=== PATIENT | female | born 1960 ===

== ENCOUNTER 2017-09-26 09:33 | Outpatient (CLI) | payer OTHER | END 2017-09-26 10:00 | disposition home or self-care (01) | LOC: LAB 09:33 | DX: E03.9 Hypothyroidism, unspecified (principal); R78.2 Finding of cocaine in blood ==

== ENCOUNTER 2017-09-26 10:28 | Outpatient (CLI) | payer OTHER | END 2017-09-26 10:46 | disposition home or self-care (01) | LOC: SONOGRAMA 10:28 | DX: E03.9 Hypothyroidism, unspecified (principal) ==

== ENCOUNTER 2017-10-10 09:55 | Outpatient (CLI) | payer OTHER | END 2017-10-10 10:15 | disposition home or self-care (01) | LOC: LAB 09:55 | DX: E03.8 Other specified hypothyroidism (principal); E21.3 Hyperparathyroidism, unspecified ==

== ENCOUNTER 2017-11-03 06:53 | Outpatient (CLI) | payer OTHER | END 2017-11-03 06:57 | disposition home or self-care (01) | LOC: SONOGRAMA 06:53 | DX: E04.2 Nontoxic multinodular goiter (principal) ==

== ENCOUNTER 2021-02-05 09:24 | Outpatient (CLI) | payer OTHER | END 2021-02-05 09:27 | disposition home or self-care (01) | LOC: SONOGRAMA 09:24 | PROVIDERS: ATTEND Pathology Anatomic Pathology & Clinical Pathology | DX: E04.1 Nontoxic single thyroid nodule (principal) ==

== ENCOUNTER 2021-07-27 12:24 | Emergency (ER) | payer OTHER ==
[~2021-07-27] VITALS: Ht 167.6 cm; Wt 106.6 kg
[2021-07-27] MEDS ORDERED: LITHOBID300 M1 (12:59)
[2021-07-27] MEDS ORDERED: ATARAX25 MG PO (12:59)
[2021-07-27] MEDS ORDERED: LEVOTHYROXINE100 MC1 PO (12:59)
[2021-07-27] MEDS ORDERED: QUETIAPINE FUM400 M1 PO (12:59)
[2021-07-27] MEDS ORDERED: DUI500 PO (16:20)
[2021-07-27] MEDS ORDERED: ZYRTEC10 M3 PO (16:20)
== END 2021-07-27 16:27 | disposition home or self-care (01) ==
LOC: ER 12:24
DX: T78.40XA Allergy, unspecified, initial encounter (principal); E03.9 Hypothyroidism, unspecified

== ENCOUNTER 2021-10-19 10:08 | Outpatient (CLI) | payer OTHER ==
[~2021-10-19 10:08] MED LIST: ATARAX25 MG PO; DUI500 PO; LEVOTHYROXINE100 MC1 PO; LITHOBID300 M1; QUETIAPINE FUM400 M1 PO; ZYRTEC10 M3 PO
== END 2021-10-19 14:34 | disposition home or self-care (01) ==
LOC: TOM 10:08
PROVIDERS: ATTEND Internal Medicine Gastroenterology
DX: K59.00 Constipation, unspecified (principal); K56.600 Partial intestinal obstruction, unspecified as to cause; K92.1 Melena; D12.2 Benign neoplasm of ascending colon

== ENCOUNTER 2022-03-09 14:57 | Emergency (ER) | payer OTHER ==
[~2022-03-09] VITALS: Ht 167.6 cm; Wt 104.3 kg
== END 2022-03-09 21:22 | disposition home or self-care (01) ==
LOC: ER 14:57
DX: R11.10 Vomiting, unspecified (principal); R11.0 Nausea; E87.6 Hypokalemia

== ENCOUNTER 2022-03-12 14:53 | Inpatient (IN) | payer OTHER ==
[~2022-03-12] VITALS: Ht 167.6 cm; Wt 107.0 kg
== END 2022-03-28 14:15 | disposition home or self-care (01) | DRG 445 ==
LOC: ER 14:53 → SURH 23:33
PROVIDERS: ADMIT Internal Medicine; ATTEND Internal Medicine
PROC: 02HV33Z Insertion of Infusion Device into Superior Vena Cava, Percutaneous Approach (ICD-10-PCS; principal; 2022-03-14)
PROC: BF37ZZZ Magnetic Resonance Imaging (MRI) of Pancreas (ICD-10-PCS; 2022-03-15)
DX: K80.18 Calculus of gallbladder with other cholecystitis without obstruction (principal); E87.0 Hyperosmolality and hypernatremia; K90.49 Malabsorption due to intolerance, not elsewhere classified; E87.6 Hypokalemia; E86.0 Dehydration; K29.60 Other gastritis without bleeding; Z20.822 Contact with and (suspected) exposure to COVID-19

== ENCOUNTER 2022-06-21 11:54 | Outpatient (CLI) | payer OTHER | END 2022-06-21 11:57 | disposition home or self-care (01) | LOC: LAB 11:54 | PROVIDERS: ATTEND Specialist | DX: D68.8 Other specified coagulation defects (principal) ==

== ENCOUNTER 2022-06-22 06:10 | Outpatient (CLI) | payer OTHER | END 2022-06-22 06:12 | disposition home or self-care (01) | LOC: LAB 06:10 | PROVIDERS: ATTEND Specialist | DX: D68.62 Lupus anticoagulant syndrome (principal); Z15.89 Genetic susceptibility to other disease; R79.83 Abnormal findings of blood amino-acid level; D68.61 Antiphospholipid syndrome; D68.59 Other primary thrombophilia ==

== ENCOUNTER 2023-05-09 10:29 | Outpatient (CLI) | payer OTHER ==
[2023-05-09 10:59] LABS: HEMATOCRIT 36.1 % (36.0-45.00); HEMOGLOBIN 12.6 g/dL (12.0-15.00); MEAN CORPUSCULAR HEMOGLOBIN 31.2 pg (27.00-32.0); RED BLOOD COUNT 4.05 M/uL (4.00-6.00); RED CELL DISTRIBUTION WIDTH 14.7 % (11.5-14.5)
[2023-05-09 11:01] LABS: PLATELET COUNT 113 K/uL (150-450)
[2023-05-09 11:38] LABS: INR 1.24; PARTIAL THROMBOPLASTIN TIME 30.4 SECONDS (22.0-34.0); PROTHROMBIN TIME 12.8 SECONDS (9.0-11.5)
[2023-05-09 12:03] LABS: ALBUMIN 3.7 gm/dL (3.4-5.0); BILIRUBIN TOTAL 2.51 mg/dL (0.3-1.2); CALCIUM 9.1 mg/dL (8.5-10.1); CREATININE SERUM 0.84 mg/dL (0.55-1.02); GFR 68.7; GLOBULINA 3.1 G/DL (2.4-3.5); POTASSIUM 3.73 mEq/L (3.5-5.1); TOTAL PROTEIN 6.8 gm/dL (6.4-8.2); TSH 2.1 uIU/mL (0.358-3.74)
== END 2023-05-09 10:54 | disposition home or self-care (01) ==
LOC: LAB 10:29
PROVIDERS: ATTEND Surgery
DX: Z01.810 Encounter for preprocedural cardiovascular examination (principal); I10 Essential (primary) hypertension; R10.9 Unspecified abdominal pain; R94.31 Abnormal electrocardiogram [ECG] [EKG]; J45.998 Other asthma; E03.9 Hypothyroidism, unspecified; E11.65 Type 2 diabetes mellitus with hyperglycemia; D68.8 Other specified coagulation defects

== ENCOUNTER 2023-05-09 10:56 | Outpatient (CLI) | payer OTHER | END 2023-05-09 11:04 | disposition home or self-care (01) | LOC: RAD 10:56 | PROVIDERS: ATTEND Surgery | DX: I10 Essential (primary) hypertension (principal) ==

== ENCOUNTER → 2023-05-19 | Day surgery (SDC) | payer OTHER ==
[~2023-05-19] MED LIST changes: +MIRALAX17 GM PO; +NEURONTIN300 MG PO; +TRAMADOL HCL50 MG PO; +TYLENOL ARTHRI650 MG PO
== END | disposition home or self-care (01) ==
LOC: ADM 05-12 09:15 → CIR.AMB 05:07
PROVIDERS: ATTEND Surgery
DX: K80.10 Calculus of gallbladder with chronic cholecystitis without obstruction (principal); Z20.822 Contact with and (suspected) exposure to COVID-19

== ENCOUNTER 2023-10-31 08:14 | Outpatient (CLI) | payer OTHER | END 2023-10-31 08:32 | disposition home or self-care (01) | LOC: MRI 08:14 | PROVIDERS: ATTEND Internal Medicine Gastroenterology | DX: K80.20 Calculus of gallbladder without cholecystitis without obstruction (principal); R17 Unspecified jaundice; R10.9 Unspecified abdominal pain; E80.6 Other disorders of bilirubin metabolism | CPT/HCPCS: 74183 ==

== ENCOUNTER 2024-01-24 10:59 | Outpatient (CLI) | payer OTHER | END 2024-01-24 11:21 | disposition home or self-care (01) | LOC: MAMO-SONO 10:59 | DX: N64.4 Mastodynia (principal); D68.59 Other primary thrombophilia; D68.61 Antiphospholipid syndrome; E72.11 Homocystinuria; E72.12 Methylenetetrahydrofolate reductase deficiency; F31.11 Bipolar disorder, current episode manic without psychotic features, mild; N63 Unspecified lump in breast; E03.9 Hypothyroidism, unspecified ==

== ENCOUNTER 2024-05-24 11:06 | Outpatient (CLI) | payer OTHER | END 2024-05-24 11:09 | disposition home or self-care (01) | LOC: SONOGRAMA 11:06 | PROVIDERS: ATTEND Pathology Anatomic Pathology & Clinical Pathology | DX: D34 Benign neoplasm of thyroid gland (principal); E06.3 Autoimmune thyroiditis; E03.8 Other specified hypothyroidism ==

== ENCOUNTER 2025-01-22 10:57 | Emergency (ER) | payer OTHER ==
[~2025-01-22] VITALS: Ht 167.6 cm; Wt 108.4 kg
[2025-01-22 11:13] VITALS: BP 119/77; O2SAT 96
[2025-01-22] MEDS ORDERED: ONDANSETRON 4 MG TAB.RAPDIS PO ONE (14:45)
[2025-01-22 15:33] LABS: BASO % 0.8 % (0.1-1.2); EOS # 0.49 (0.04-0.54); EOS % 5.4 % (0.7-7.0); LYMPH # 1.53 (1.18-3.74); LYMPH % 16.8 % (19.3-53.1); MEAN PLATELET VOLUME 9.60 fl (9.4-12.4); MONO # 0.65 (0.24-0.82); MONO % 7.1 % (4.7-12.5); NEUT # 6.33 (1.56-6.13); NEUT % 69.6 % (34.0-71.1); RED CELL DISTRIBUTION WIDTH 14.0 % (11.6-14.4)
[2025-01-22 16:14] LABS: ALT/SGPT 49.0 U/L (12-78); AST/SGOT 73.0 U/L (15-37); BILIRUBIN TOTAL 5.2 mg/dL (0.3-1.2); BUN CREA RATIO 7.0 (7.0-25.0); CREATININE SERUM 0.86 mg/dL (0.55-1.02); GFR 66.64; GLOBULINA 3.2 G/DL (2.4-3.5); GLUCOSE FASTING 101.0 mg/dL (65-100); OSMOLALITY SERUM 285.0 MOSM/KG (275-295); TSH 2.47 uIU/mL (0.358-3.74)
[2025-01-22 16:44] LABS: URINE APPEARANCE Clear; URINE BILIRRUBIN Small (NEGATIVE); URINE BLOOD Negative; URINE COLOR Dark Yellow; URINE GLUCOSE Negative (NEGATIVE); URINE KETONE Trace (NEGATIVE); URINE LEUKOCYTE Trace; URINE NITRATE Negative; URINE PROTEIN Trace (NEGATIVE); URINE UROBILINOGEN 1.0 E.U./dl
[2025-01-22 16:56] LABS: URINE BACTERIA 2619.5 uL (0.0-1933); URINE EPITHELIAL CELLS 88.8 uL (0.0-38.8); URINE RBC 7.3 uL (0.0-20.8); URINE WBC 15.3 uL (0.0-23.2)
[2025-01-22 17:16] LABS: URINE CAST 0.00 uL (0.0-1.40)
[2025-01-22 17:17] LABS: TYPE CELLS SQUAMOUS; URINE CRYSTALS FEW /HPF
[2025-01-22 17:18] LABS: URINE MUCUS SCANT
[2025-01-22 17:18] LABS: BILIRUBIN TOTAL 5.05 mg/dL (0.3-1.2); BILIRUBIN,CONJUGATED 0.83 mg/dL (0.0-0.2)
[2025-01-22] MEDS ORDERED: VISTARIL PO (19:04)
== END 2025-01-22 20:23 ==
LOC: ER 10:57
PROVIDERS: Emergency Medicine; Preventive Medicine Public Health & General Preventive Medicine
DX: G47.09 Other insomnia (principal); I10 Essential (primary) hypertension; E03.8 Other specified hypothyroidism; F31.89 Other bipolar disorder